=== PATIENT | male | born 1970 | race African-American/Black ===

== ENCOUNTER 2024-09-24 11:53 | Emergency (ER) | payer MEDICAID ==
[~2024-09-24] VITALS: Ht 170.2 cm; Wt 77.3 kg
[2024-09-24 11:56] VITALS: O2SAT 100
[2024-09-24 12:05] VITALS: BP 134/80; PULSE 81; RESP 18; TEMP 36.9; O2SAT 100
[2024-09-24] MEDS: IBUPROFEN 600MG TABLET PO ONE (13:06)
[2024-09-24] MEDS ORDERED: IBUP-2029 MT (14:32)
[2024-09-24] MEDS ORDERED: CYCL10TA21 MT (14:32)
== END 2024-09-24 14:51 | disposition home or self-care (01) ==
LOC: ER 11:53
DX: S20.219A Contusion of unspecified front wall of thorax, initial encounter (principal); Z79.899 Other long term (current) drug therapy; V89.2XXA Person injured in unspecified motor-vehicle accident, traffic, initial encounter; Y93.89 Activity, other specified; Y92.89 Other specified places as the place of occurrence of the external cause; Y99.8 Other external cause status
CPT/HCPCS: 71101; 99283

== ENCOUNTER 2025-04-10 09:22 | Emergency (ER) | payer MEDICAID ==
[~2025-04-10] VITALS: Ht 175.3 cm; Wt 88.0 kg
[~2025-04-10 09:22] MED LIST: CYCL10TA21 MT; IBUP-1455 MT
[2025-04-10 09:43] VITALS: TEMP 37; O2SAT 100
[2025-04-10 10:24] LABS: BASOPHILS % 0.4 % (0.0-2.0); EOSINOPHILS % 1.0 % (0.0-5.0); HEMATOCRIT. 44.6 % (42.0-52.0); HEMOGLOBIN. 14.7 g/dL (14.0-18.0); LYMPHOCYTES % 50.8 % (20.0-50.0); MEAN PLATELET VOLUME 7.4 fl (7.4-10.4); MONOCYTES % 9.3 % (2.0-8.0); NEUTROPHILS % 38.5 % (40.0-76.0); PLATELET 257 x1000/uL (130-400); RED BLOOD CELL COUNT 5.22 mill/uL (4.7-6.1); RED CELL DISTRIBUTION WIDTH 13.3 % (11.6-14.6)
[2025-04-10 10:39] LABS: CREATININE 1.8 mg/dL (0.6-1.3); UREA NITROGEN BLOOD 16 mg/dL (9-23)
[2025-04-10 10:40] LABS: TROPONIN I HIGH SENSITIVITY 5 ng/L (3.0-53)
[2025-04-10 10:41] LABS: ASPARTATE AMINOTRANSFERASE 15 IU/L (<34); BILIRUBIN DIRECT 0.2 mg/dL (<=3.0); BILIRUBIN TOTAL 0.7 mg/dL (0.1-1.0); PROTEIN TOTAL 6.6 g/dL (6.0-8.3)
[2025-04-10] MEDS: IBUPROFEN 600MG TABLET PO ONE (11:07)
[2025-04-10] MEDS: METHOCARBAMOL 500MG TABLET PO ONE (11:07)
[2025-04-10 11:10] VITALS: BP 110/57; PULSE 69; RESP 18; O2SAT 100
[2025-04-10] MEDS ORDERED: LIDO700A30 TP (11:12)
[2025-04-10] MEDS ORDERED: METH-653 MT (11:12)
== END 2025-04-10 11:25 | disposition home or self-care (01) ==
LOC: ER 09:22
DX: S20.213A Contusion of bilateral front wall of thorax, initial encounter (principal); D64.9 Anemia, unspecified; W19.XXXA Unspecified fall, initial encounter; Y93.89 Activity, other specified; Y92.89 Other specified places as the place of occurrence of the external cause; Y99.8 Other external cause status
CPT/HCPCS: 36415; 71111; 80048; 80076; 84484; 85025; 93005; 99285